=== PATIENT | male | born 1935 | race Caucasian/White ===

== ENCOUNTER 2016-11-08 07:47 | Inpatient (IN) | payer OTHER, MEDICARE ==
[2016-10-31 09:43] VITALS: BMI 25.0
--- NOTE | 2016-10-31 10:08 | PAT Medication Instructions ---
Service Date Oct 31, 2016. Current Home Medication List Amlodipine (Norvasc), 2.5 MG PO QAM Aspirin (Aspirin Ec), 81 MG PO QPM Ibuprofen (Advil), 200 MG PO Q4 PRN for Pain Losartan Potassium (Cozaar), 50 MG PO QAM Methylcellulose (Laxative) (Fiber Therapy), 1 TAB PO QAM Multivitamin (Multivitamin), 1 TAB PO QAM Potassium Chloride (Micro-K Ext Rel), 10 MEQ PO QAM Simvastatin (Zocor), 20 MG PO QPM Tramadol (Ultram), 50 MG PO Q4H PRN for Pain Medication Instructions For Your Scheduled Surgery - Hold the following medications the morning of surgery: Ibuprofen (Advil), 200 MG PO Q4 PRN for Pain (otherwise okay to continue per surgeon) Losartan Potassium (Cozaar), 50 MG PO QAM Methylcellulose (Laxative) (Fiber Therapy), 1 TAB PO QAM Multivitamin (Multivitamin), 1 TAB PO QAM Potassium Chloride (Micro-K Ext Rel), 10 MEQ PO QAM - Take the following medications the morning of surgery with a sip of water OTHERWISE NOTHING TO EAT OR DRINK AFTER MIDNIGHT: Amlodipine (Norvasc), 2.5 MG PO QAM Tramadol (Ultram), 50 MG PO Q4H PRN for Pain (may take if needed up to 4 hours prior to surgery) - Take the following medications as scheduled the night before surgery: Aspirin (Aspirin Ec), 81 MG PO QPM Tramadol (Ultram), 50 MG PO Q4H PRN for Pain Simvastatin (Zocor), 20 MG PO QPM If you have any questions please call us at [phone] or [phone] or [phone]
--- NOTE | 2016-10-31 10:57 | DIAGNOSTIC IMAGING REPORT ---
CHEST PREADMISSION(PA/LAT) CLINICAL HISTORY: Preoperative evaluation. COMPARISON STUDY: No previous studies for comparison. FINDINGS: A round nodular density projecting over the left midlung is artifactual. Lateral view shows this to be on rather than within the patient. No pneumothorax or pleural effusion is present. There is no consolidation to suggest pneumonia. Pulmonary vascularity is normal. Cardiomediastinal silhouette is normal. IMPRESSION: No acute cardiopulmonary findings. Electronically signed by: Talha Wang M.D. 10/31/2016 10:56 AM Dictated Date/Time: 10/31/2016 10:55 AM
[2016-10-31 11:37] LABS: BASO % 0.8 %; BASO ABS # 0.08 K/uL (0-0.2); COMPLETE YES; HEMATOCRIT 43.4 % (42-52); IG% 0.3 %; LYMPH ABS # 2.16 K/uL (1.2-3.4); MEAN CELL VOLUME 88.4 fL (80-100); MEAN CORPUSCULAR HEMOGLOBIN 31.4 pg (25-34); MEAN CORPUSCULAR HGB CONC 35.5 g/dl (32-36); MEAN PLATELET VOLUME 9.7 fL (7.4-10.4); NEUT % 62.9 %; PLATELET COUNT 360 K/uL (130-400); RED BLOOD COUNT 4.91 M/uL (4.7-6.1); WHITE BLOOD COUNT 9.84 K/uL (4.8-10.8)
[2016-10-31 11:46] LABS: PARTIAL THROMBOPLASTIN RATIO 1.1; PROTHROMBIN TIME (PATIENT) 10.7 SECONDS (9.0-12.0)
[2016-10-31 12:00] LABS: BUN/CREATININE RATIO 11.7 (10-20); CALCIUM 9.5 mg/dl (8.5-10.1); CREATININE 1.4 mg/dl (0.60-1.40); POTASSIUM 4.6 mmol/L (3.5-5.1)
[2016-10-31 13:29] LABS: URINE APPEARANCE CLEAR (CLEAR); URINE BILIRUBIN NEG (NEG); URINE COLOR DK YELLOW; URINE NITRITE NEG (NEG); URINE PH 6.5 (4.5-7.5); URINE SPECIFIC GRAVITY 1.023 (1.000-1.030); UROBILINOGEN NEG (NEG)
[2016-10-31 13:45] LABS: MANUAL MICROSCOPIC REQUIRED? NO; REVIEW REQ? NO
[~2016-11-08] VITALS: Ht 165.1 cm; Wt 69.6 kg
[~2016-11-08 07:47] MED LIST: AMLO2.5T PO; ASPI81TA28 PO; CEFAZOLIN 2000 MG/60 ML D5W IV SCH; IBUP-1050 PO; LACTATED RINGER'S 1000ML 1,000 ML IV SCH; LOSA50TA6 PO; METH1TAB66 PO; MULT-506 PO; POTA10CA28 PO; SIMV20TA2 PO; SODIUM CHLORIDE 0.9% 1000ML 1,000 ML IV SCH; TRAM-10 PO
[2016-11-08] MEDS ORDERED: ONDANSETRON INJ 2 MG/ML 2 ML VIAL IV PRN ×2 (08:15→11:15)
[2016-11-08] MEDS ORDERED: ATROPINE SULFATE 0.1 MG/ML 5ML SYR IV PRN (08:15)
[2016-11-08] MEDS ORDERED: HYDROmorphone INJ 1 MG/ML SYR IV PRN ×2 (08:15→11:15)
[2016-11-08] MEDS ORDERED: EpHEDrine SULFATE INJ 50 MG/ML AMP IV PRN (08:15)
[2016-11-08] MEDS ORDERED: FENTANYL CITRATE INJ 50 MCG/1 ML 2 ML VIAL IV PRN (08:15)
[2016-11-08 08:18] VITALS: BP 185/86; PULSE 93; TEMP 36.8; O2SAT 98; BMI 25.0
[2016-11-08] MEDS ORDERED: MIDAZOLAM HCL 1 MG/ML 2ML VIAL ONE (08:23)
[2016-11-08] MEDS ORDERED: FENTANYL CITRATE INJ 50 MCG/1 ML 2 ML VIAL ONE ×3 (08:23→12:21)
[2016-11-08] MEDS ORDERED: GELATIN SPONGE SZ 100 ONE (08:59)
[2016-11-08] MEDS ORDERED: THROMBIN FOR SOLN 20000 UNIT KIT ONE (09:00)
[2016-11-08] MEDS ORDERED: VANCOMYCIN HCL 1000MG/20ML VIAL ONE (09:00)
[2016-11-08] MEDS ORDERED: BACITRACIN 50000 UNIT VIAL ONE (09:00)
[2016-11-08] MEDS ORDERED: BUPIVACAINE/EPINEPHRINE 0.5% MPF 1:200,000 10 ML VIAL ONE (09:00)
--- NOTE | 2016-11-08 09:02 | History and Physical ---
History & Physical Date Nov 08, 2016. History of Present Illness The patient is a 81 year old male with complaints of back and lower extremity difficulties Past Medical/Surgical History Medical history of hypertension high cholesterol no diabetes no thyroid issues no anemia history carcinoma Her to go history includes lumbar spine surgery 1995, toe surgery and a lens implant in 2015. He also had a basal cell carcinoma removed. Allergies negative Additional History Hepatic Disease: No Endocrine Disorder: No Kidney Disease: No Hypertension: No Heart Disease: No Bleeding Tendencies: No Infectious Diseases: No Allergies Coded Allergies: No Known Allergies (Unverified , 11/08/16) Home Medications Scheduled Amlodipine (Norvasc), 2.5 MG PO QAM Aspirin (Aspirin Ec), 81 MG PO QPM Losartan Potassium (Cozaar), 50 MG PO QAM Methylcellulose (Laxative) (Fiber Therapy), 1 TAB PO QAM Multivitamin (Multivitamin), 1 TAB PO QAM Potassium Chloride (Micro-K Ext Rel), 10 MEQ PO QAM Simvastatin (Zocor), 20 MG PO QPM Scheduled PRN Ibuprofen (Advil), 200 MG PO Q4 PRN for Pain Tramadol (Ultram), 50 MG PO Q4H PRN for Pain Physical Examination Skin: warm/dry Eyes: normal inspection ENT: normal ENT inspection Head: normocephalic Neck: supple Respiratory/Chest: lungs clear Cardiovascular: regular rate, rhythm Abdomen / GI: normal bowel sounds Back: normal inspection, + pertinent finding (loss of range of motion pain with percussion o loss normal lordosis) Extremities: normal inspection ASA Classification: ASA Class III Plan of Treatment Plan of treatment lumbar laminectomy L4-5 L5-S1
[2016-11-08] MEDS ORDERED: HYDROmorphone INJ 2 MG/ML SYR/VIAL ONE (09:37)
[2016-11-08] MEDS ORDERED: NEOSTIGMINE METHYLSULFATE 5 MG/5 ML SYR ONE (11:02)
[2016-11-08] MEDS ORDERED: GLYCOPYRROLATE INJ 0.2 MG/ML VIAL ONE (11:02)
[2016-11-08] MEDS ORDERED: LIDOCAINE HCL 2% 2 ML VIAL (20MG/ML) ONE (11:02)
[2016-11-08] MEDS ORDERED: ROCURONIUM BROMIDE 10 MG/ML 5 ML VIAL ONE (11:02)
[2016-11-08] MEDS ORDERED: ONDANSETRON INJ 2 MG/ML 2 ML VIAL ONE (11:02)
[2016-11-08] MEDS ORDERED: DEXAMETHASONE SOD INJ 4 MG/ML VIAL ONE (11:02)
[2016-11-08] MEDS ORDERED: PROPOFOL IV EMULSION 10 MG/ML 20 ML VIAL IV ONE (11:02)
[2016-11-08] MEDS ORDERED: IBUPROFEN 200 MG TAB PO PRN (11:15)
[2016-11-08] MEDS ORDERED: ACETAMINOPHEN 325 MG TAB PO PRN (11:15)
[2016-11-08] MEDS ORDERED: OXYCODONE/ACETAMINOPHEN 5-325 TAB PO PRN ×2 (11:15)
[2016-11-08] MEDS ORDERED: METOCLOPRAMIDE HCL INJ 5 MG/ML 2 ML VIAL IV PRN (11:15)
[2016-11-08] MEDS ORDERED: MAGNESIUM HYDROXIDE SUSP 30 ML UDC PO PRN (11:15)
[2016-11-08] MEDS ORDERED: LORAZEPAM INJ 1 MG in SYRINGE 0 ML IV PRN (11:15)
[2016-11-08] MEDS ORDERED: HYDROmorphone INJ 2 MG/ML SYR/VIAL IV PRN (11:15)
[2016-11-08] MEDS ORDERED: PROMETHAZINE HCL INJ 12.5 MG in SODIUM CHLORIDE 0.9% 50ML 50 ML IV PRN (11:15)
[2016-11-08] MEDS ORDERED: LORAZEPAM 1 MG TAB PO PRN (11:15)
--- NOTE | 2016-11-08 11:17 | [facility] Post Operative Brief Note ---
Immediate Operative Summary Operative Date Nov 08, 2016. Pre-Operative Diagnosis Lumbar Spinal Stenosis Post-Operative Diagnosis Lumbar Spinal Stenosis Procedure(s) Performed L4-L5, L5-S1 Laminectomy; fusion L4-[address] Hinojosa Neon Sign Worker Surgeon(s) Marques Salazar PA-C Estimated Blood Loss 200 ml Findings severe stenosis. Specimens None as per surgeon Complication(s) None Disposition Recovery Room / PACU
[2016-11-08] MEDS ORDERED: ESMOLOL HCL 10 MG/ML 10 ML VIAL ONE (11:22)
[2016-11-08] MEDS ORDERED: IV FLUIDS COMPLETED PRN (11:45)
--- NOTE | 2016-11-08 11:56 | DIAGNOSTIC IMAGING REPORT ---
INTRAOPERATIVE LUMBAR SPINE SINGLE VIEW CLINICAL HISTORY: L4-S1 LAMINECTOMY COMPARISON STUDY: No previous studies for comparison. FINDINGS: 1 second fluoroscopic time was utilized. A single intraoperative fluoroscopic spot images provided for interpretation areas this reveals retractors and metallic instruments in the posterior elements extending from the mid L3 to the mid L5 level. IMPRESSION: Intraoperative fluoroscopic spot image for localization purposes Electronically signed by: Margarito Ojeda M.D. 11/08/2016 11:55 AM Dictated Date/Time: 11/08/2016 11:54 AM
--- NOTE | 2016-11-08 11:57 | Anesthesiology Progress Note ---
Anesthesia Post Op Note Date & Time Nov 08, 2016 at 11:57 Vital Signs Pain Intensity: 0 Vital Signs Past 12 Hours Date Time Temp Pulse Resp B/P (MAP) Pulse Ox O2 Delivery O2 Flow Rate FiO2 11/08/16 11:45 100 16 169/94 100 Nasal Cannula 4 11/08/16 11:35 94 19 150/59 98 Nasal Cannula 4 11/08/16 11:25 88 14 145/64 100 Oxymask 10 11/08/16 11:18 36.4 89 13 140/70 100 Oxymask 10 11/08/16 08:18 36.8 93 18 185/86 (119) 98 Room Air Notes Mental Status: alert / awake / arousable, participated in evaluation Pt Amnestic to Procedure: Yes Nausea / Vomiting: adequately controlled Pain: adequately controlled Airway Patency, RR, SpO2: stable & adequate BP & HR: stable & adequate Hydration State: stable & adequate Anesthetic Complications: no major complications apparent
[2016-11-08 12:21] LABS: HEMATOCRIT 35.2 % (42-52)
[2016-11-08] MEDS ORDERED: METOPROLOL TARTRATE 1 MG/ML VIAL ONE (12:52)
[2016-11-08] MEDS ORDERED: METOPROLOL TARTRATE 1 MG/ML VIAL IV PRN (13:30)
--- NOTE | 2016-11-08 13:32 | OPERATIVE REPORT ---
DATE OF OPERATION: 11/08/2016 PREOPERATIVE DIAGNOSIS: Severe stenosis L4, L5, S1. POSTOPERATIVE DIAGNOSIS: Same, spondylolisthesis L4-L5. PROCEDURES: 1. Laminectomy L4, laminectomy L5, laminectomy S1. 2. Posterior lateral fusion with autograft. SURGEON: Dr. Hinojosa. RESIDENTIAL PROGRAM COORDINATOR: Marques Salazar PA-C. COMPLICATIONS: 0. ANESTHESIA: General. PROCEDURE: The patient was taken to the operating room and a general intubated anesthetic provided to the patient. Roberts catheter administered. Placed prone, scrubbed and prepped and draped sterile. We made a skin incision from L3 to S1 dissecting the soft tissue exposing the lamina. I put in a deep self-retaining retractor. We actually got out over the facet joints and transverse process L4-5 anticipating a fusion later on in the case. We then decompressed the neural elements at L3-L4 down to L4-L5 and L5-S1. So essentially a 3-level laminectomy, foraminotomies, partial facetectomy. We caused no collateral damage to the nerve roots or to the dural structures. We then assessed stability. He had somewhat of a breakdown of the L4-L5 facet on the left hand side so we had minor instability factors. We then went over the transverse process, bone grafted this with combination autograft and allograft. No spinal pedicle screws were used. We irrigated thoroughly with approximately 500 mL of fluid, placed some Gelfoam over the dural structures, bone grafted spine as stated above and closed over vancomycin powder and a Hemovac drain with 1 Vicryl suture, 2-0 in the subcuticular layer, 3-0 nylon on the skin, sterile dressing applied. The patient returned to recovery room satisfactory and stable. No apparent interoperative complications. I attest to the content of the Intraoperative Record and any orders documented therein. Any exception s are noted below.
[2016-11-08] MEDS ORDERED: METOPROLOL TARTRATE 1 MG/ML VIAL IV STA ×2 (13:56)
[2016-11-08 14:09] LABS: HEMATOCRIT 35.5 % (42-52)
[2016-11-08 14:37] LABS: ALB/GLOB RATIO 0.9 (0.9-2); BUN/CREATININE RATIO 12.2 (10-20); CALCIUM 8.6 mg/dl (8.5-10.1); CREATININE 1.2 mg/dl (0.60-1.40); POTASSIUM 4.2 mmol/L (3.5-5.1)
[2016-11-08 14:59] VITALS: O2SAT 100
[2016-11-08] MEDS: SODIUM CHLORIDE 0.9% 1000ML 1,000 ML IV SCH (15:32)
[2016-11-08 15:45] VITALS: BP 157/86; PULSE 100; TEMP 36.9; O2SAT 96; Ht 165.1 cm; Wt 69.6 kg
[2016-11-08] MEDS: CEFAZOLIN IV 1,000 MG in DEXTROSE 5% 50ML 50 ML IV SCH (18:27)
[2016-11-08] MEDS: DEXAMETHASONE INJ 10 MG in SYRINGE 0 ML IV SCH (18:28)
[2016-11-08 19:09] VITALS: BP 142/67; PULSE 94; TEMP 37.1; O2SAT 93
[2016-11-08] MEDS: SIMVASTATIN 20 MG TAB PO SCH (21:13)
[2016-11-08] MEDS: ASPIRIN 81 MG ECTAB PO SCH (21:16)
[2016-11-08 23:54] VITALS: BP 118/57; PULSE 94; TEMP 37.3; O2SAT 98
[2016-11-09] VITALS (10 sets, daily range): BP systolic 130–171; BP diastolic 61–82; PULSE 93–110; TEMP 36.6–37.1; O2SAT 95–97
[2016-11-09] MEDS: DEXAMETHASONE INJ 10 MG in SYRINGE 0 ML IV SCH ×3 (02:27→18:56)
[2016-11-09] MEDS: CEFAZOLIN IV 1,000 MG in DEXTROSE 5% 50ML 50 ML IV SCH ×2 (02:33→10:30)
[2016-11-09] MEDS: SODIUM CHLORIDE 0.9% 1000ML 1,000 ML IV SCH ×2 (02:33→12:55)
[2016-11-09] MEDS ORDERED: BISACODYL 10 MG SUPP PR PRN (06:00)
[2016-11-09] MEDS ORDERED: BISACODYL 5 MG TABEC PO PRN (06:00)
[2016-11-09] MEDS: METHYLCELLULOSE POWDER 454 GM JAR PO SCH (07:56)
[2016-11-09] MEDS: POTASSIUM CHLORIDE 10 MEQ TABCR PO SCH (07:57)
[2016-11-09] MEDS: AMLODIPINE BESYLATE 5 MG TAB PO SCH (08:00)
[2016-11-09] MEDS: LOSARTAN POTASSIUM 50 MG TAB PO SCH (08:08)
[2016-11-09] MEDS: MULTIVITAMIN TAB PO SCH (08:09)
[2016-11-09] MEDS: POLYETHYLENE (MIRALAX) 17 GM PACK PO SCH (08:49)
--- NOTE | 2016-11-09 09:36 | Anesthesiology Progress Note ---
Anesthesia Post Op Note Date & Time Nov 09, 2016 at 09:36 Vital Signs Pain Intensity: 0.0 Vital Signs Past 12 Hours Date Time Temp Pulse Resp B/P (MAP) Pulse Ox O2 Delivery O2 Flow Rate FiO2 11/09/16 08:05 96 Room Air 11/09/16 07:39 37.0 110 18 161/71 (101) 96 Room Air 11/09/16 04:10 37.0 103 20 130/61 (84) 97 Room Air 11/09/16 00:00 Room Air 11/09/16 00:00 Room Air 11/08/16 23:54 37.3 94 18 118/57 (77) 98 Room Air Notes Mental Status: alert / awake / arousable, participated in evaluation Pt Amnestic to Procedure: Yes Nausea / Vomiting: adequately controlled Pain: adequately controlled Airway Patency, RR, SpO2: stable & adequate BP & HR: stable & adequate Hydration State: stable & adequate Anesthetic Complications: no major complications apparent
[2016-11-09] MEDS ORDERED: NURSING VERBAL MED ORDER ONE (13:00)
[2016-11-09] MEDS: ASPIRIN 81 MG ECTAB PO SCH (21:53)
[2016-11-09] MEDS: SIMVASTATIN 20 MG TAB PO SCH (21:53)
[2016-11-10] MEDS: DEXAMETHASONE INJ 10 MG in SYRINGE 0 ML IV SCH (02:07)
[2016-11-10 04:03] VITALS: BP 128/67; PULSE 86; TEMP 37; O2SAT 97
[2016-11-10 06:37] LABS: HEMATOCRIT 32.9 % (42-52)
[2016-11-10 06:59] LABS: BUN/CREATININE RATIO 16.7 (10-20); CALCIUM 8.9 mg/dl (8.5-10.1); CREATININE 1.3 mg/dl (0.60-1.40); MAGNESIUM 1.9 mg/dl (1.8-2.4)
[2016-11-10 07:39] VITALS: BP 162/72; PULSE 93; TEMP 36.8; O2SAT 98
[2016-11-10] MEDS ORDERED: HYDR-5688 PO (08:00)
--- NOTE | 2016-11-10 08:03 | Discharge Instructions ---
Discharge Instructions Date of Service Nov 10, 2016. Admission Reason for Admission: Tachyarrhythmia Discharge Discharge Diagnosis / Problem: spinal stenosis Discharge Goals Goal(s): Improve function Activity Recommendations Activity Limitations: as noted below Lifting Limitations: no more than 5 pounds Exercise/Sports Limitations: until after follow-up appointment May Resume Sexual Activity: after follow-up appointment Shower/Bathe: keep incision dry Driving or Machine Use: home, rest , recover . Instructions / Follow-Up Instructions / Follow-Up MEDICATIONS: Please take your prescriptions as instructed at your pre-op appointment. SPECIAL CARE: The following information is intended to answer some of the common questions and concerns regarding your surgery. Each patient is an individual and receives individual counselling throughout the course of treatment, from diagnosis to surgery all the way through recovery. What follows is not an exhaustive list, but should be a useful guide to some of the common questions and concerns patients have regarding their surgeries. These are not provided to keep you from calling us; rather, they give you something accurate and concrete to reference as you recover from your procedure. If you need us, we are available to you. As always, if you are not sure about something, call us at [phone]. MEDICAL EMERGENCIES: For these conditions, call 911 or go to your local hospital-based Emergency Department - not [facility] or equivalent. * Paralysis * Severe chest pain or difficulty breathing * Swelling or redness of either leg Spine procedures can be rather complex and though complications are rare, they do occur. In such cases, effective advice regarding emergency situations cannot always be addressed over the telephone. You may be referred to the emergency department for more effective management of your problem. Activity Limitations: It is important to give your body time to heal, so please limit your activities : * In general, don't do anything that moves your spine too much. You should avoid contact sports, twisting or heavy lifting while you recover. * 5-10 pounds is all you should attempt to lift. * You should not plan on driving for approximately 3 weeks and you should avoid traveling more than 30-45 minutes at a time. Longer trips should be broken down with walking breaks spaced appropriately. * Physical therapy is not usually required. * Walking and good posture practices will help you recover and regain your function. * Avoid straining or sudden changes in position. * In general, the goal is to take it easy and recover. Don't cause any new problems. Just relax. Showers: * Do not take a bath, use a Jacuzzi or hot tub or otherwise submerge your incision. * It is usually safe to take a shower 4-5 days after your surgery. * Your incision does not require any special creams or ointments. * Simply clean it with soap and water, dry and re-dress with a clean bandage afterwards. Incision: * Keep incision clean, dry and protected until your first follow-up appointment. * Some amount of drainage and redness is normal. Any drainage should be fairly clear and not have a foul odor. * If you feel anything is wrong or you have excessive drainage, please call us. * Your stitches and merari will be removed 10-14 days after your surgery. At the time of your first post-op visit. * Neck surgeries are typically closed with a suture underneath the skin. The steri-strips over the incision should be maintained until we see you in the office. Bracing: * You may be provided with a back or neck brace to encourage good posture and prevent injury. It will remind you not to do too much as you heal and will alert others to the fact that you have had a surgery. * Back braces may be removed for showers and when you are resting at home. They must be worn when you are walking around for any period of time or for travel. * For neck surgery, you will likely be provided with two cervical collars. The soft collar ([place] or foam rubber) is worn most commonly throughout the day and while sleeping. The plastic collar (provided at the hospital) is for showering/bathing. * Except while eating, collars should remain in place. More specifically, bracing is provided for a purpose and should be worn. * Please obtain your brace or collars prior to your operation and bring them to the hospital with you on the day of surgery. * You should also bring your collars to your post-op appointment with Dr. Hinojosa. You should always take good care of your body and practice healthy habits, especially following surgery. You should: * Follow your doctor's treatment plan * Sit and stand properly with good posture (ears over shoulders, shoulders over hips) Don't slouch * Learn to lift correctly * Exercise regularly (low-impact aerobic exercise is especially good, but check with your doctor first) * Generally, be up and walking for 5-10 minutes at a time at least 3-4 times per day from the day you get home * Increasing walking to tolerance until you can walk for 20-30 minutes at a time * Attain and maintain a healthy body weight * Eat healthy foods ( a well-balanced, low-fat diet rich in fruits and vegetables) and get enough calcium * Avoid excessive use of alcohol When to call our office - If you notice any of the following: * Increased pain not relieve by pain medicine * Fevers greater then 100 degrees F, chills or flu symptoms * Increased redness around incision * Drainage from the incision that is not clear * Any foul smelling drainage * Swelling or fluid collection beneath the skin Miscellaneous: * In the hospital, you may be given a walker or cane for support while walking. These are temporary needs and are intended to prevent injuries due to falls. You may discontinue them when you feel strong and steady enough on your feet. * Sleep in a comfortable position. We find that many patients find a lounge chair or recliner with several pillows to be beneficial in the early post-operative period. * The support stockings should be used for 7-10 days and may be discontinued when you are back to walking more and conducting usual household activities. No problem is insignificant. We are here to help you and get you well. Contact us at [phone]. Definitions: Foraminotomy: If part of the disc or a bone spur (osteophyte) is pressing on a nerve as it leaves the vertebra (through an exit called the foramen), a foraminotomy may be done. Otomy means "to make an opening." A foraminotomy is making the opening of the foramen larger, so the nerve can exit without being compressed. Laminotomy: Similar to the foraminotomy, a laminotomy makes a larger opening, this time in your bony plate protecting your spinal canal and spinal cord (the lamina). The lamina may be pressing on your nerve, so the surgeon may make more room for the nerves using a laminotomy. Laminectomy: Sometimes, a laminotomy is not sufficient. The surgeon may need to remove all or part of the lamina. This procedure is called a laminectomy. This can often be done at many levels without any harmful effects. Current Hospital Diet Patient's current hospital diet: Regular Diet Discharge Diet Recommended Diet: Regular Diet Procedures Procedures Performed: L4-L5, L5-S1 Laminectomy; fusion L4-5 Pending Studies Studies pending at discharge: no Medical Emergencies . Who to Call and When: Medical Emergencies: If at any time you feel your situation is an emergency, please call 911 immediately. . Non-Emergent Contact Non-Emergency issues call your: Surgeon Call Non-Emergent contact if: you have any medication questions . "Provider Documentation" section prepared by Milton Hinojosa. . VTE Core Measure Inpt VTE Proph given/why not?: Treatment not indicated
[2016-11-10] MEDS: METHYLCELLULOSE POWDER 454 GM JAR PO SCH (08:06)
[2016-11-10] MEDS: AMLODIPINE BESYLATE 5 MG TAB PO SCH (08:07)
[2016-11-10] MEDS: POLYETHYLENE (MIRALAX) 17 GM PACK PO SCH (08:07)
[2016-11-10] MEDS: LOSARTAN POTASSIUM 50 MG TAB PO SCH (08:07)
[2016-11-10] MEDS: POTASSIUM CHLORIDE 10 MEQ TABCR PO SCH (08:08)
[2016-11-10] MEDS: MULTIVITAMIN TAB PO SCH (08:08)
[2016-11-10 09:15] VITALS: BP 162/72; PULSE 93; TEMP 36.8; O2SAT 98
--- NOTE | 2016-11-12 07:02 | DISCHARGE SUMMARY ---
DATE OF DISCHARGE: 11/10/2016 SUBJECTIVE: He was improved, stable. Vital signs stable, blood pressure 128/67. Hematocrit 32.9. He is alert, oriented, no confusion. The wound is clean, dry, protected. ASSESSMENT: Status post lumbar spine laminectomy 2 levels along with cardiac arrhythmia. He is improved and stable here today the and we will discharge him home. He has instructions, precautions given to him in the hospital and at home. He may do without the [place] support stockings. A prescription for [place] is on his chart. Keep his wound clean, dry, and protected. The back brace is somewhat optional. Follow-up examination in approximately 10 days in the office.
== END 2016-11-10 09:50 | disposition home or self-care (01) | DRG 460 ==
LOC: C.ACU 07:47 → ENRESERV 12:29 → CANRESERV 12:29 → EDBEDREQSVC 13:12 → C.2T 13:12 → ENRESERV 13:32
PROVIDERS: ADMIT Orthopaedic Surgery Orthopaedic Surgery of the Spine; ATTEND Orthopaedic Surgery Orthopaedic Surgery of the Spine
PROC: 0SG0071 Fusion of Lumbar Vertebral Joint with Autologous Tissue Substitute, Posterior Approach, Posterior Column, Open Approach (ICD-10-PCS; principal; 2016-11-08 09:30)
DX: M48.06 Spinal stenosis, lumbar region (principal); M43.16 Spondylolisthesis, lumbar region; M48.07 Spinal stenosis, lumbosacral region; R00.0 Tachycardia, unspecified; I10 Essential (primary) hypertension; E78.00 Pure hypercholesterolemia, unspecified; Z79.899 Other long term (current) drug therapy; Z79.82 Long term (current) use of aspirin